=== PATIENT | female | born 1955 | race Caucasian/White ===

== ENCOUNTER 2023-12-19 04:16 | Inpatient (IN) | payer MEDICARE ==
[2023-12-19] MEDS ORDERED: fentaNYL 50 mcg/mL 1 mL Vial ONE ×3 (04:20→04:28)
[2023-12-19] MEDS ORDERED: Fentanyl CADD 100 ML IV SCH (04:30)
[2023-12-19 04:35] LABS: Analyzer IN Cardio ER; Calcium, Ionized (venous) 0.99 mmol/L (1.16-1.32); Chloride (VBG) 86 mmol/L (98-106); Hematocrit-VBG 37 % (36.0-47.0); Hemoglobin (Hb) 12.6 g/dL (11.7-16.1); Potassium (VBG) 2.96 mmol/L (3.70-5.30); Sodium 139 mmol/L (133-146); pH (venous) 7.421 (7.32-7.43)
[2023-12-19] MEDS ORDERED: NOREPINEPHRINE 8 MG/250 ML-D5W 250 ML ONE (04:37)
[2023-12-19] MEDS ORDERED: Cefepime 2 GM VIAL ONE (04:39)
[2023-12-19] MEDS ORDERED: Magnesium 2 GM/50 ML BAG (IN WATER) ONE (04:39)
[2023-12-19] MEDS ORDERED: Ketamine In 0.9 % NaCl 50 MG/5 ML SYRINGE ONE (04:48)
[2023-12-19 05:09] LABS: #Basophils 0.03 10x3/uL (0.0-0.2); %Basophils 0.2 % (0.0-1.0); %Eosinophils 1.3 % (0.0-10.0); %Lymphocytes 14.4 % (21.0-51.0); %Monocytes 3.9 % (0.0-10.0); %Neutrophils 79.8 % (42.0-75.0); Hematocrit 39.6 % (36.0-47.0); Mean Corpuscular HGB CONC 30.3 g/dL (32.0-36.0); Mean Corpuscular Hemoglobin 29.9 pg (27.0-31.0); Mean Corpuscular Volume 98.8 fL (78.0-98.0); Mean Platelet Volume 9.4 fL (7.4-10.4); Platelet Count 227 10x3/uL (130-400); RBC Distribution Width 13.9 % (11.5-14.5); Red Blood Cell (RBC) Count 4.01 mill/uL (4.20-5.40)
[2023-12-19 05:14] LABS: Actual Bicarbonate (HCO3v) 49.8 mEq/L (22-28)
[2023-12-19] MEDS ORDERED: Lorazepam 2 MG/ML VIAL ONE (05:28)
[2023-12-19 05:31] LABS: ALT (SGPT) 21 U/L (8-55); AST (SGOT) 15 U/L (5-34); Albumin 2.8 g/dL (3.4-4.8); Alkaline Phosphatase 55 U/L (40-110); Anion Gap 14 mmol/L (10-20); BUN (Urea Nitrogen) 12 mg/dL (9.8-20.1); Bilirubin, Total 1.7 mg/dL (0.2-1.2); Calc. Creatinine Clearance 0 mL/min (70-130); Calcium 8.6 mg/dL (7.8-10.44); Carbon Dioxide 49 mmol/L (23-31); Chloride 84 mmol/L (98-107); Estimated GFR 92; Globulin 3.2 g/dL (2.4-3.5); Glucose 165 mg/dL (80-115); Potassium 3.1 mmol/L (3.5-5.1); Sodium 144 mmol/L (136-145)
[2023-12-19] MEDS ORDERED: Sodium Chloride 0.9% 100 ML ONE (05:59)
[2023-12-19] MEDS ORDERED: Dexamethasone 10 MG/ML VIAL ONE (05:59)
[2023-12-19] MEDS ORDERED: Ondansetron PF 4 MG/2 ML Vial IVP PRN (06:04)
[2023-12-19] MEDS ORDERED: Ventilator Sedation Protocol 1 EACH FS SCH (07:15)
[2023-12-19] MEDS ORDERED: Fentanyl BOLUS 250 ML IVPB PRN (07:30)
[2023-12-19] MEDS ORDERED: Propofol BOLUS 1,000 MG/100 ML VIAL IV PRN (07:30)
[2023-12-19] MEDS: Ipratropium/Albuterol 3 ML NEB ONE (07:30)
[2023-12-19] MEDS ORDERED: DISCONTINUE PREVIOUS NARCOTIC PAIN MEDICATIONS AND BENZODIAZEPINES FS SCH (07:30)
[2023-12-19] MEDS ORDERED: Morphine 2 MG/ML VIAL SLOW IVP PRN (07:30)
[2023-12-19] MEDS ORDERED: NOREPINEPHRINE 8 MG/250 ML-D5W 250 ML IVPB SCH ×2 (07:45→08:15)
[2023-12-19] MEDS ORDERED: Sodium Chloride 0.9% 1,000 ML IV SCH (07:45)
[2023-12-19 07:56] LABS: Actual Bicarbonate (HCO3a) 45.5 mEq/L (22-28); Base Excess (BEa) 18.1 mEq/L (-2.0 to +3.0); Carboxyhemoglobin (COHb) 1.7 gm% (0.0-3.0); Hematocrit-ABG 36 % (36.0-47.0); Hemoglobin (Hb) 12.2 g/dL (12.0-16.0); Potassium - ABG Lab 3.28 mmol/L (3.70-5.30); pH, Arterial 7.445 (7.35-7.45)
[2023-12-19 07:58] LABS: ALV-art Gradient 111.125 mmHg (0-20); Puncture Site Right Brachial art
[2023-12-19] MEDS: Albumin 25% 25 GM (100 mL) BOT IVPB SCH (08:28)
[2023-12-19] MEDS: Potassium Chloride 20 MEQ TAB PO SCH (08:28)
[2023-12-19 08:55] VITALS: BMI 27.6
[2023-12-19] MEDS: Famotidine/PF 20 mg/2ml Vial SLOW IVP SCH (09:13)
[2023-12-19] MEDS: Enoxaparin 40 MG (0.4 mL) SYRINGE SC SCH (09:13)
[2023-12-19] MEDS: Ipratropium/Albuterol 3 ML NEB NEB SCH (10:59)
[2023-12-19] MEDS: Vancomycin (BATCH) 2 GM in Premix 1 BAG IVPB SCH (12:12)
[2023-12-19] MEDS: methylPREDNISolone Sod Succ 40 MG VIAL IVP SCH (13:13)
[2023-12-19] MEDS: Magnesium 2 GM/50 ML(in water) 2 GM in Premix 1 BAG IVPB SCH (13:13)
[2023-12-19] MEDS: Fentanyl CADD 100 ML IV SCH (14:13)
[2023-12-19] MEDS: Lorazepam 2 MG/ML VIAL SLOW IVP PRN (14:28)
[2023-12-19] MEDS: Cefepime 1 GM in Sodium Chloride 0.9% 100 ML IVPB SCH (17:23)
[2023-12-19 22:16] LABS: Anion Gap 13 mmol/L (10-20); BUN (Urea Nitrogen) 12 mg/dL (9.8-20.1); Calc. Creatinine Clearance 100 mL/min (70-130); Calcium 8.7 mg/dL (7.8-10.44); Carbon Dioxide 43 mmol/L (23-31); Chloride 88 mmol/L (98-107); Estimated GFR 96; Glucose 147 mg/dL (80-115); Potassium 3.8 mmol/L (3.5-5.1); Sodium 140 mmol/L (136-145)
[2023-12-20 04:33] LABS: #Basophils Less than 0.03 10x3/uL (0.0-0.2); #Eosinophils Less than 0.03 10x3/uL (0.0-0.7); %Lymphocytes 7.9 % (21.0-51.0); %Monocytes 3.1 % (0.0-10.0); %Neutrophils 88.7 % (42.0-75.0); Hematocrit 34.6 % (36.0-47.0); Hemoglobin 10.5 g/dL (12.0-16.0); Mean Corpuscular HGB CONC 30.3 g/dL (32.0-36.0); Mean Corpuscular Hemoglobin 30.6 pg (27.0-31.0); Mean Corpuscular Volume 100.9 fL (78.0-98.0); Mean Platelet Volume 9.3 fL (7.4-10.4); Platelet Count 216 10x3/uL (130-400); RBC Distribution Width 13.7 % (11.5-14.5); Red Blood Cell (RBC) Count 3.43 mill/uL (4.20-5.40)
[2023-12-20 05:24] LABS: ALT (SGPT) 61 U/L (8-55); AST (SGOT) 34 U/L (5-34); Albumin 3.1 g/dL (3.4-4.8); Alkaline Phosphatase 51 U/L (40-110); Anion Gap 10 mmol/L (10-20); BUN (Urea Nitrogen) 11 mg/dL (9.8-20.1); Bilirubin, Total 0.4 mg/dL (0.2-1.2); Calc. Creatinine Clearance 100 mL/min (70-130); Calcium 9.1 mg/dL (7.8-10.44); Carbon Dioxide 45 mmol/L (23-31); Chloride 88 mmol/L (98-107); Estimated GFR 96; Globulin 2.7 g/dL (2.4-3.5); Glucose 147 mg/dL (80-115); Magnesium 2.3 mg/dL (1.6-2.6); Potassium 3.8 mmol/L (3.5-5.1); Protein, Total 5.8 g/dL (5.8-8.1); Sodium 139 mmol/L (136-145)
[2023-12-20] MEDS: Dexmedetomidine In 0.9 % NaCl 100 ML IV SCH (11:17)
[2023-12-20] MEDS: Dextrose 5%-Lactated Ringers 1,000 ML IV SCH (11:18)
[2023-12-20] MEDS: Propofol 1,000 MG/100 ML VIAL IV PRN (16:30)
[2023-12-20] MEDS: Cefepime 2 GM in Sodium Chloride 0.9% 100 ML IVPB SCH (17:21)
[2023-12-21 03:46] LABS: #Basophils Less than 0.03 10x3/uL (0.0-0.2); #Eosinophils Less than 0.03 10x3/uL (0.0-0.7); %Lymphocytes 7.6 % (21.0-51.0); %Monocytes 4.4 % (0.0-10.0); %Neutrophils 87.7 % (42.0-75.0); Hematocrit 31.7 % (36.0-47.0); Mean Corpuscular HGB CONC 31.5 g/dL (32.0-36.0); Mean Corpuscular Hemoglobin 30.8 pg (27.0-31.0); Mean Corpuscular Volume 97.5 fL (78.0-98.0); Mean Platelet Volume 9.3 fL (7.4-10.4); Platelet Count 213 10x3/uL (130-400); RBC Distribution Width 13.7 % (11.5-14.5); Red Blood Cell (RBC) Count 3.25 mill/uL (4.20-5.40)
[2023-12-21 03:59] LABS: ALT (SGPT) 41 U/L (8-55); AST (SGOT) 14 U/L (5-34); Albumin 2.7 g/dL (3.4-4.8); Alkaline Phosphatase 43 U/L (40-110); Anion Gap 8 mmol/L (10-20); BUN (Urea Nitrogen) 12 mg/dL (9.8-20.1); Bilirubin, Total 0.3 mg/dL (0.2-1.2); Calc. Creatinine Clearance 105 mL/min (70-130); Calcium 9.1 mg/dL (7.8-10.44); Carbon Dioxide 43 mmol/L (23-31); Chloride 94 mmol/L (98-107); Estimated GFR 97; Globulin 2.6 g/dL (2.4-3.5); Glucose 199 mg/dL (80-115); Potassium 3.8 mmol/L (3.5-5.1); Protein, Total 5.3 g/dL (5.8-8.1); Sodium 141 mmol/L (136-145)
[2023-12-21 10:38] LABS: CO2 Tension 67.7 mmHg (35.0-45.0)
[2023-12-21 10:39] LABS: O2 Tension (PaO2), arterial 53.8 mmHg (> 80.0)
[2023-12-21] MEDS: Famotidine 20 MG TAB PO SCH (21:23)
[2023-12-22] MEDS ORDERED: dilTIAZem 25 MG/5 ML VIAL SLOW IVP SCH (01:45)
[2023-12-22 03:36] LABS: #Basophils Less than 0.03 10x3/uL (0.0-0.2); #Eosinophils Less than 0.03 10x3/uL (0.0-0.7); %Lymphocytes 10.5 % (21.0-51.0); %Monocytes 3.9 % (0.0-10.0); %Neutrophils 85.1 % (42.0-75.0); Hematocrit 36.6 % (36.0-47.0); Hemoglobin 11.2 g/dL (12.0-16.0); Mean Corpuscular HGB CONC 30.6 g/dL (32.0-36.0); Mean Corpuscular Hemoglobin 29.9 pg (27.0-31.0); Mean Corpuscular Volume 97.6 fL (78.0-98.0); Mean Platelet Volume 9.3 fL (7.4-10.4); Platelet Count 235 10x3/uL (130-400); RBC Distribution Width 13.8 % (11.5-14.5); Red Blood Cell (RBC) Count 3.75 mill/uL (4.20-5.40)
[2023-12-22 03:58] LABS: ALT (SGPT) 35 U/L (8-55); AST (SGOT) 13 U/L (5-34); Alkaline Phosphatase 47 U/L (40-110); Anion Gap 11 mmol/L (10-20); BUN (Urea Nitrogen) 11 mg/dL (9.8-20.1); Bilirubin, Total 0.5 mg/dL (0.2-1.2); Calc. Creatinine Clearance 102 mL/min (70-130); Calcium 9.4 mg/dL (7.8-10.44); Carbon Dioxide 41 mmol/L (23-31); Chloride 98 mmol/L (98-107); Estimated GFR 96; Globulin 2.9 g/dL (2.4-3.5); Glucose 161 mg/dL (80-115); Magnesium 1.7 mg/dL (1.6-2.6); Potassium 4.2 mmol/L (3.5-5.1); Protein, Total 5.9 g/dL (5.8-8.1); Sodium 146 mmol/L (136-145)
[2023-12-22] MEDS: Azithromycin 250 MG TAB PO SCH (13:12)
[2023-12-22] MEDS: ALPRAZolam 0.5 MG TAB PO SCH (16:14)
[2023-12-22] MEDS: Budesonide 0.5 MG/2 ML NEB INH SCH (18:36)
[2023-12-23] MEDS: Amlodipine 5 MG TAB PO SCH (08:11)
[2023-12-23 08:12] LABS: Anion Gap 9 mmol/L (10-20); BUN (Urea Nitrogen) 12 mg/dL (9.8-20.1); Calc. Creatinine Clearance 101 mL/min (70-130); Calcium 9.4 mg/dL (7.8-10.44); Carbon Dioxide 38 mmol/L (23-31); Chloride 101 mmol/L (98-107); Estimated GFR 96; Glucose 125 mg/dL (80-115); Potassium 4.1 mmol/L (3.5-5.1); Sodium 144 mmol/L (136-145)
[2023-12-23] MEDS: Montelukast Sodium 10 mg Tablet PO SCH (08:12)
[2023-12-23] MEDS: Azithromycin 250 MG TAB PO SCH (08:12)
[2023-12-23] MEDS: Arformoterol 15 MCG/2 ML NEB NEB SCH (18:32)
[2023-12-23] MEDS: methylPREDNISolone Sod Succ 40 MG VIAL IVP SCH (20:57)
[2023-12-24] MEDS: Ipratropium/Albuterol 3 ML NEB NEB SCH (14:27)
[2023-12-25] MEDS: Acetaminophen 325 MG TAB PO PRN (03:08)
[2023-12-25] MEDS: methylPREDNISolone Sod Succ 40 MG VIAL IVP SCH (09:56)
[2023-12-25 15:26] VITALS: BMI 26.9
[2023-12-26] MEDS: predniSONE 20 MG TAB PO SCH (09:00)
[2023-12-31] MEDS: ALPRAZolam 0.5 MG TAB PO PRN (16:11)
[2024-01-01 08:17] VITALS: BP 167/79; TEMP 98.1
== END 2024-01-01 12:05 | disposition home or self-care (01) | DRG 208 ==
LOC: ERS 04:16 → CCU 05:18 → IMCU/EMU 12-23 17:05 → SURG A 12-27 11:06
PROVIDERS: ADMIT Internal Medicine; ATTEND Internal Medicine
PROC: 4A033R1 Measurement of Arterial Saturation, Peripheral, Percutaneous Approach (ICD-10-PCS; principal; 2023-12-19)
PROC: 5A1945Z Respiratory Ventilation, 24-96 Consecutive Hours (ICD-10-PCS; 2023-12-19)
PROC: 3E033XZ Introduction of Vasopressor into Peripheral Vein, Percutaneous Approach (ICD-10-PCS; 2023-12-19)
PROC: 30233J1 Transfusion of Nonautologous Serum Albumin into Peripheral Vein, Percutaneous Approach (ICD-10-PCS; 2023-12-19)
PROC: 5A09457 Assistance with Respiratory Ventilation, 24-96 Consecutive Hours, Continuous Positive Airway Pressure (ICD-10-PCS; 2023-12-22)
DX: J96.21 Acute and chronic respiratory failure with hypoxia (principal); I50.33 Acute on chronic diastolic (congestive) heart failure; J44.1 Chronic obstructive pulmonary disease with (acute) exacerbation; E87.3 Alkalosis; J96.22 Acute and chronic respiratory failure with hypercapnia; E87.6 Hypokalemia; I11.0 Hypertensive heart disease with heart failure; E78.5 Hyperlipidemia, unspecified; E83.42 Hypomagnesemia; F41.1 Generalized anxiety disorder; I48.91 Unspecified atrial fibrillation; G47.33 Obstructive sleep apnea (adult) (pediatric); Z79.899 Other long term (current) drug therapy
CPT/HCPCS: 31500; 36415; 36556; 36600; 71045; 71275; 80048; 80053; 82805; 83605; 83735; 83880; 85025; 87040; 87428; 93005; 93010; 93306; 94002; 94003; 94640; 94660; 96365; 96366; 96368; 96375; 96376; J0692; J1100; J1650; J2060; J2704; J2919; J3010; J3370; J3475; J3490; J7512; J7620; J7626; P9047

== ENCOUNTER 2024-03-11 10:25 | Inpatient (IN) | payer MEDICAID, MEDICARE ==
[2024-03-11] MEDS ORDERED: Budesonide 0.5 MG/2 ML NEB ONE (10:34)
[2024-03-11] MEDS ORDERED: methylPREDNISolone Sod Succ/PF 125 MG/2 ML VIAL ONE (11:56)
[2024-03-11 11:59] LABS: #Basophils 0.03 10x3/uL (0.0-0.2); %Basophils 0.3 % (0.0-1.0); %Eosinophils 3.2 % (0.0-10.0); %Monocytes 5.5 % (0.0-10.0); %Neutrophils 78.6 % (42.0-75.0); Hematocrit 37.9 % (36.0-47.0); Hemoglobin 11.9 g/dL (12.0-16.0); Mean Corpuscular HGB CONC 31.4 g/dL (32.0-36.0); Mean Corpuscular Hemoglobin 29.7 pg (27.0-31.0); Mean Corpuscular Volume 94.5 fL (78.0-98.0); Mean Platelet Volume 8.5 fL (7.4-10.4); Platelet Count 212 10x3/uL (130-400); RBC Distribution Width 13.1 % (11.5-14.5); Red Blood Cell (RBC) Count 4.01 mill/uL (4.20-5.40)
[2024-03-11 12:20] LABS: ALT (SGPT) 19 U/L (8-55); AST (SGOT) 14 U/L (5-34); Albumin 3.3 g/dL (3.4-4.8); Alkaline Phosphatase 56 U/L (40-110); Anion Gap 9 mmol/L (10-20); BUN (Urea Nitrogen) 10 mg/dL (9.8-20.1); Bilirubin, Total 0.4 mg/dL (0.2-1.2); Calc. Creatinine Clearance 0 mL/min (70-130); Calcium 9.6 mg/dL (7.8-10.44); Carbon Dioxide 48 mmol/L (23-31); Chloride 92 mmol/L (98-107); Estimated GFR 99; Globulin 3.2 g/dL (2.4-3.5); Glucose 133 mg/dL (80-115); Protein, Total 6.5 g/dL (5.8-8.1); Sodium 145 mmol/L (136-145)
[2024-03-11 12:23] LABS: Troponin I 0.013 ng/mL (< 0.028)
[2024-03-11 12:44] LABS: Analyzer IN Cardio ER; Base Excess 19.3 mEq/L (-2.0 to +3.0); Calcium, Ionized (venous) 1.17 mmol/L (1.16-1.32); Chloride (VBG) 93 mmol/L (98-106); Hematocrit-VBG 35 % (36.0-47.0); Hemoglobin (Hb) 11.8 g/dL (11.7-16.1); Potassium (VBG) 4.13 mmol/L (3.70-5.30); Sodium 141 mmol/L (133-146); pH (venous) 7.305 (7.32-7.43)
[2024-03-11 12:46] LABS: Actual Bicarbonate (HCO3v) 50.3 mEq/L (22-28)
[2024-03-11] MEDS ORDERED: Ketorolac Tromethamine 30 MG (1 mL) VIAL ONE (13:33)
[2024-03-11] MEDS ORDERED: Bisacodyl 5 MG TAB PO PRN (14:45)
[2024-03-11] MEDS ORDERED: Ondansetron PF 4 MG/2 ML Vial IVP PRN (14:45)
[2024-03-11] MEDS: Azithromycin 500 MG in Sodium Chloride 0.9% 250 ML 250 ML IVPB SCH (15:50)
[2024-03-11] MEDS: cefTRIAXone\\ROCEPHIN 1 GM in Sodium Chloride 0.9% 100 ML IVPB SCH (15:51)
[2024-03-11] MEDS: Zinc Oxide 20% Oint 30 GM TUBE TOP SCH (15:52)
[2024-03-11] MEDS: ALPRAZolam 0.5 MG TAB PO SCH (17:36)
[2024-03-11] MEDS: methylPREDNISolone Sod Succ 40 MG VIAL IVP SCH (17:36)
[2024-03-11] MEDS: Ipratropium/Albuterol 3 ML NEB NEB SCH (18:22)
[2024-03-12 01:03] VITALS: BMI 28.3
[2024-03-12] MEDS: Acetaminophen 325 MG TAB PO PRN (03:12)
[2024-03-12 05:54] LABS: #Basophils Less than 0.03 10x3/uL (0.0-0.2); #Eosinophils Less than 0.03 10x3/uL (0.0-0.7); %Monocytes 2.1 % (0.0-10.0); %Neutrophils 85.4 % (42.0-75.0); Mean Corpuscular HGB CONC 31.4 g/dL (32.0-36.0); Mean Corpuscular Hemoglobin 29.3 pg (27.0-31.0); Mean Corpuscular Volume 93.3 fL (78.0-98.0); Mean Platelet Volume 9.4 fL (7.4-10.4); Platelet Count 216 10x3/uL (130-400); RBC Distribution Width 12.8 % (11.5-14.5); Red Blood Cell (RBC) Count 3.75 mill/uL (4.20-5.40)
[2024-03-12 06:15] LABS: Anion Gap 11 mmol/L (10-20); BUN (Urea Nitrogen) 24 mg/dL (9.8-20.1); Calc. Creatinine Clearance 92 mL/min (70-130); Calcium 9.2 mg/dL (7.8-10.44); Carbon Dioxide 43 mmol/L (23-31); Chloride 95 mmol/L (98-107); Estimated GFR 95; Glucose 184 mg/dL (80-115); Potassium 4.5 mmol/L (3.5-5.1); Sodium 144 mmol/L (136-145)
[2024-03-12] MEDS: Mometasone 200 MCG/Formoterol 5 MCG 120 PUFF INHALER INH SCH (06:44)
[2024-03-12] MEDS ORDERED: Non-Formulary Item 1 EACH (Tiotropium Bromide 4 GM Inhaler) INH SCH (09:00)
[2024-03-12] MEDS: Montelukast Sodium 10 mg Tablet PO SCH (09:25)
[2024-03-12] MEDS: Enoxaparin 40 MG (0.4 mL) SYRINGE SC SCH (09:26)
[2024-03-12] MEDS: Famotidine/PF 20 mg/2ml Vial SLOW IVP SCH (09:26)
[2024-03-12] MEDS ORDERED: traMADol HCl 50 MG TAB PO PRN (17:45)
[2024-03-12] MEDS: Ipratropium/Albuterol 3 ML NEB NEB PRN (22:14)
[2024-03-13] MEDS: FLU (Fluad Triv) TS24-25 (65UP)/MF59C/PF 45 MCG/0.5 ML Syringe IM ONE (08:12)
[2024-03-14 08:23] VITALS: BP 153/76; TEMP 98.1
[2024-03-14] MEDS: Amlodipine 5 MG TAB PO SCH (09:06)
[2024-03-14] MEDS: Pantoprazole DR 40 MG TAB PO SCH (09:06)
[2024-03-14 13:44] LABS: Base Excess 12.2 mEq/L (-2.0 to +3.0); Calcium, Ionized (venous) 1.11 mmol/L (1.16-1.32); Chloride (VBG) 93 mmol/L (98-106); Hematocrit-VBG 39 % (36.0-47.0); Hemoglobin (Hb) 13.3 g/dL (11.7-16.1); Potassium (VBG) 4.47 mmol/L (3.70-5.30); Sodium 142 mmol/L (133-146)
[2024-03-14 13:47] LABS: Actual Bicarbonate (HCO3v) 39.8 mEq/L (22-28)
== END 2024-03-14 15:50 | disposition home or self-care (01) | DRG 189 ==
LOC: ERS 10:25 → IMCU/EMU 14:37 → T4-A 03-13 13:54
PROVIDERS: ADMIT Internal Medicine; ATTEND Family Medicine
PROC: 5A09357 Assistance with Respiratory Ventilation, Less than 24 Consecutive Hours, Continuous Positive Airway Pressure (ICD-10-PCS; principal; 2024-03-14)
DX: J96.21 Acute and chronic respiratory failure with hypoxia (principal); J44.1 Chronic obstructive pulmonary disease with (acute) exacerbation; I50.32 Chronic diastolic (congestive) heart failure; J96.22 Acute and chronic respiratory failure with hypercapnia; I11.0 Hypertensive heart disease with heart failure; Z90.49 Acquired absence of other specified parts of digestive tract; Z98.51 Tubal ligation status; Z87.891 Personal history of nicotine dependence; Z79.899 Other long term (current) drug therapy; R33.8 Other retention of urine
CPT/HCPCS: 36415; 36416; 71045; 80048; 80053; 82805; 83880; 84484; 85025; 93005; 94640; 96374; 96375; J0456; J0696; J1650; J1885; J2919; J3490; J7050; J7620; J7626

== ENCOUNTER 2024-04-23 17:58 | Inpatient (IN) | payer MEDICARE, OTHER ==
[2024-04-23] MEDS ORDERED: Magnesium 2 GM/50 ML BAG (IN WATER) ONE (18:56)
[2024-04-23] MEDS ORDERED: Ipratropium/Albuterol 3 ML NEB ONE ×2 (19:05→20:45)
[2024-04-23 19:21] LABS: Bilirubin Negative (Negative); Blood, Urine 1+ (Negative); CAUTI Indications for Culture Alt mental st,lethar; Clarity Turbid (Clear); Glucose, Urine (Dipstick) 100 mg/dL (Negative); Ketone, Urine Negative (Negative); Leukocyte 500 Leu/uL (Negative); Nitrite Negative (Negative); Protein, Urine (Dipstick) 100 mg/dL (Neg-Trace); Specific Gravity, Urine 1.024 (1.002-1.036); Urobilinogen Normal mg/dL (Less than 2); WBC/HPF Greater than 50 HPF (0-3); pH, Urine 5.5 (5.0-9.0)
[2024-04-23 19:25] LABS: Bacteria/HPF 1+ HPF (None Seen)
[2024-04-23 19:28] LABS: Urine Culture Reflex Yes Yes
[2024-04-23 20:06] LABS: #Basophils Less than 0.03 10x3/uL (0.0-0.2); #Eosinophils Less than 0.03 10x3/uL (0.0-0.7); %Basophils 0.1 % (0.0-1.0); %Eosinophils 0.1 % (0.0-10.0); %Lymphocytes 15.8 % (21.0-51.0); %Monocytes 6.8 % (0.0-10.0); %Neutrophils 76.8 % (42.0-75.0); Hematocrit 40.1 % (36.0-47.0); Hemoglobin 12.5 g/dL (12.0-16.0); Mean Corpuscular HGB CONC 31.2 g/dL (32.0-36.0); Mean Corpuscular Hemoglobin 29.8 pg (27.0-31.0); Mean Corpuscular Volume 95.7 fL (78.0-98.0); Mean Platelet Volume 9.1 fL (7.4-10.4); Platelet Count 186 10x3/uL (130-400); RBC Distribution Width 12.7 % (11.5-14.5); Red Blood Cell (RBC) Count 4.19 mill/uL (4.20-5.40)
[2024-04-23 20:13] LABS: Base Excess 13.1 mEq/L (-2.0 to +3.0); Calcium, Ionized (venous) 1.11 mmol/L (1.16-1.32); Chloride (VBG) 88 mmol/L (98-106); Hematocrit-VBG 41 % (36.0-47.0); Hemoglobin (Hb) 13.9 g/dL (11.7-16.1); Potassium (VBG) 4.08 mmol/L (3.70-5.30); Sodium 143 mmol/L (133-146); pH (venous) 7.419 (7.32-7.43)
[2024-04-23] MEDS ORDERED: Albuterol 2.5 MG (3 mL) NEB ONE (20:45)
[2024-04-23 20:52] LABS: ALT (SGPT) 33 U/L (Less than 34); AST (SGOT) 21 U/L (11-34); Albumin 3.3 g/dL (3.1-4.5); Alkaline Phosphatase 46 U/L (40-110); Anion Gap 17 mmol/L (10-20); BUN (Urea Nitrogen) 16 mg/dL (9.8-20.1); Bilirubin, Total 0.5 mg/dL (0.3-1.2); Calc. Creatinine Clearance 0 mL/min (70-130); Calcium 9.5 mg/dL (7.8-10.44); Carbon Dioxide 42 mmol/L (23-31); Chloride 91 mmol/L (98-107); Estimated GFR 100; Globulin 2.8 g/dL (2.4-3.5); Glucose 86 mg/dL (80-115); Magnesium 1.5 mg/dL (1.6-2.6); Potassium 4.2 mmol/L (3.5-5.1); Protein, Total 6.1 g/dL (5.8-8.1); Sodium 146 mmol/L (136-145)
[2024-04-23 20:54] LABS: Troponin I 0.015 ng/mL (< 0.028)
[2024-04-23] MEDS ORDERED: Sodium Chloride 0.9% 100 ML ONE (21:29)
[2024-04-23] MEDS ORDERED: Dexamethasone 10 MG/ML VIAL ONE (21:29)
[2024-04-23] MEDS ORDERED: CEFAZOLIN 2 GM VIAL ONE (21:29)
[2024-04-23] MEDS ORDERED: Azithromycin 500 MG VIAL ONE (21:48)
[2024-04-23] MEDS ORDERED: Ipratropium/Albuterol 3 ML NEB NEB PRN (22:45)
[2024-04-23] MEDS ORDERED: Ondansetron ODT 4 MG TAB PO PRN (22:49)
[2024-04-24 00:05] VITALS: BMI 25.6
[2024-04-24] MEDS: Albuterol 2.5 MG (3 mL) NEB ONE (00:28)
[2024-04-24] MEDS: guaiFENesin ER 600 MG TAB PO SCH ×2 (00:41→09:20)
[2024-04-24] MEDS: Mometasone 200 MCG/Formoterol 5 MCG 120 PUFF INHALER INH SCH ×2 (00:41→07:44)
[2024-04-24] MEDS: Acetaminophen 325 MG TAB PO PRN (01:03)
[2024-04-24] MEDS: ALPRAZolam 0.5 MG TAB PO SCH (01:03)
[2024-04-24] MEDS: Ipratropium/Albuterol 3 ML NEB NEB SCH (01:35)
[2024-04-24 05:44] LABS: #Basophils Less than 0.03 10x3/uL (0.0-0.2); #Eosinophils Less than 0.03 10x3/uL (0.0-0.7); %Lymphocytes 7.2 % (21.0-51.0); %Monocytes 1.6 % (0.0-10.0); %Neutrophils 90.7 % (42.0-75.0); Hematocrit 35.6 % (36.0-47.0); Hemoglobin 11.1 g/dL (12.0-16.0); Mean Corpuscular HGB CONC 31.2 g/dL (32.0-36.0); Mean Corpuscular Hemoglobin 29.9 pg (27.0-31.0); Mean Platelet Volume 9.4 fL (7.4-10.4); Platelet Count 171 10x3/uL (130-400); RBC Distribution Width 12.8 % (11.5-14.5); Red Blood Cell (RBC) Count 3.71 mill/uL (4.20-5.40)
[2024-04-24 06:10] LABS: Anion Gap 13 mmol/L (10-20); BUN (Urea Nitrogen) 17 mg/dL (9.8-20.1); Calc. Creatinine Clearance 94 mL/min (70-130); Calcium 8.8 mg/dL (7.8-10.44); Carbon Dioxide 42 mmol/L (23-31); Chloride 93 mmol/L (98-107); Estimated GFR 98; Glucose 226 mg/dL (80-115); Magnesium 1.8 mg/dL (1.6-2.6); Potassium 4.1 mmol/L (3.5-5.1); Sodium 144 mmol/L (136-145)
[2024-04-24] MEDS ORDERED: ALPRAZolam 0.5 MG TAB PO SCH (09:00)
[2024-04-24] MEDS: Pantoprazole 40 MG DR.TAB PO SCH (09:20)
[2024-04-24] MEDS: Montelukast Sodium 10 mg Tablet PO SCH (09:20)
[2024-04-24] MEDS: methylPREDNISolone Sod Succ 40 MG VIAL IVP SCH (09:21)
[2024-04-24] MEDS: ALPRAZolam 0.25 MG TAB PO SCH (09:21)
[2024-04-24] MEDS: Amlodipine 5 MG TAB PO SCH (09:21)
[2024-04-24] MEDS: Enoxaparin 40 MG (0.4 mL) SYRINGE SC SCH (09:22)
[2024-04-24] MEDS: cefTRIAXone\\ROCEPHIN 1 GM in Sodium Chloride 0.9% 100 ML IVPB SCH (19:43)
[2024-04-24] MEDS: Azithromycin 500 MG in Sodium Chloride 0.9% 250 ML 250 ML IVPB SCH (19:44)
[2024-04-24] MEDS ORDERED: Non-Formulary Item 1 EACH (Budesonide-Formoterol [Symbicort 160-4.5] 160 MG/4.5 MG Aer) INH SCH (21:00)
[2024-04-24] MEDS: methylPREDNISolone Sod Succ/PF 125 MG/2 ML VIAL IVP SCH (21:07)
[2024-04-24] MEDS: Ondansetron PF 4 MG/2 ML Vial IVP PRN (21:51)
[2024-04-24] MEDS: Ipratropium Bromide 2.5 ml Neb NEB SCH (23:20)
[2024-04-25 03:58] LABS: #Basophils Less than 0.03 10x3/uL (0.0-0.2); #Eosinophils Less than 0.03 10x3/uL (0.0-0.7); %Basophils 0.1 % (0.0-1.0); %Lymphocytes 9.2 % (21.0-51.0); %Monocytes 2.2 % (0.0-10.0); %Neutrophils 87.6 % (42.0-75.0); Hematocrit 34.4 % (36.0-47.0); Hemoglobin 10.6 g/dL (12.0-16.0); Mean Corpuscular HGB CONC 30.8 g/dL (32.0-36.0); Mean Corpuscular Hemoglobin 29.9 pg (27.0-31.0); Mean Corpuscular Volume 97.2 fL (78.0-98.0); Mean Platelet Volume 9.5 fL (7.4-10.4); Platelet Count 172 10x3/uL (130-400); RBC Distribution Width 12.7 % (11.5-14.5); Red Blood Cell (RBC) Count 3.54 mill/uL (4.20-5.40)
[2024-04-25 04:29] LABS: Anion Gap 13 mmol/L (10-20); BUN (Urea Nitrogen) 15 mg/dL (9.8-20.1); Calc. Creatinine Clearance 87 mL/min (70-130); Calcium 8.8 mg/dL (7.8-10.44); Carbon Dioxide 42 mmol/L (23-31); Chloride 96 mmol/L (98-107); Estimated GFR 96; Glucose 171 mg/dL (80-115); Magnesium 1.7 mg/dL (1.6-2.6); Potassium 4.9 mmol/L (3.5-5.1); Sodium 146 mmol/L (136-145)
[2024-04-25] MEDS ORDERED: Electrolyte Replacement Protocol 1 EACH FS PRN (05:03)
[2024-04-25 07:41] VITALS: TEMP 98.7
[2024-04-25] MEDS: Magnesium 2 GM/50 ML(in water) 2 GM in Premix 1 BAG IVPB SCH (09:01)
[2024-04-25] MEDS: FLU (Fluad Triv) TS24-25 (65UP)/MF59C/PF 45 MCG/0.5 ML Syringe IM ONE (09:14)
[2024-04-25 11:41] LABS: Actual Bicarbonate (HCO3v) 40.6 mEq/L (22-28)
[2024-04-25 12:03] VITALS: BP 118/70
[2024-04-25 13:18] VITALS: BMI 25.6
== END 2024-04-25 15:05 | disposition home or self-care (01) | DRG 189 ==
LOC: ERS 17:58 → T4-B 21:54 → OBSVTOIN 04-24 11:45
PROVIDERS: ADMIT Student in an Organized Health Care Education/Training Program; ATTEND Family Medicine
DX: J96.21 Acute and chronic respiratory failure with hypoxia (principal); J44.1 Chronic obstructive pulmonary disease with (acute) exacerbation; N39.0 Urinary tract infection, site not specified; I10 Essential (primary) hypertension; E83.42 Hypomagnesemia; Z90.49 Acquired absence of other specified parts of digestive tract; J96.22 Acute and chronic respiratory failure with hypercapnia; Z79.899 Other long term (current) drug therapy; Z79.51 Long term (current) use of inhaled steroids
CPT/HCPCS: 36415; 71045; 80048; 80053; 81001; 82805; 83605; 83735; 83880; 84484; 85025; 87040; 87086; 93005; 94644; 96372; 96375; G0378; J0456; J0696; J1100; J1650; J2405; J2919; J3475; J7050; J7611; J7620

== ENCOUNTER 2024-10-05 12:00 | Inpatient (IN) | payer OTHER, MEDICAID ==
[~2024-10-05 12:00] MED LIST: Iopamidol-370 76% 500 ML MDV (1 ML CHARGE) ONE
[2024-10-05 12:29] LABS: Analyzer IN Cardio ER; Base Excess 14.5 mEq/L (-2.0 to +3.0); Calcium, Ionized (venous) 1.01 mmol/L (1.16-1.32); Chloride (VBG) 90 mmol/L (98-106); Hematocrit-VBG 37 % (36.0-47.0); Hemoglobin (Hb) 12.6 g/dL (11.7-16.1); Potassium (VBG) 3.38 mmol/L (3.70-5.30); Sodium 140 mmol/L (133-146)
[2024-10-05 12:31] LABS: Actual Bicarbonate (HCO3v) 41.6 mEq/L (22-28)
[2024-10-05 12:43] LABS: #Basophils Less than 0.03 10x3/uL (0.0-0.2); #Eosinophils 0.14 10x3/uL (0.0-0.7); #Monocytes 0.63 10x3/uL (0.11-0.59); #Neutrophils 6.03 10x3/uL (1.40-6.50); %Basophils 0.1 % (0.0-1.0); %Eosinophils 1.6 % (0.0-10.0); %Lymphocytes 22.6 % (21.0-51.0); %Monocytes 7.1 % (0.0-10.0); %Neutrophils 67.9 % (42.0-75.0); Hematocrit 37.7 % (36.0-47.0); Hemoglobin 11.0 g/dL (12.0-16.0); Mean Corpuscular Hemoglobin 28.4 pg (27.0-31.0); Mean Corpuscular Volume 97.4 fL (78.0-98.0); Platelet Count 279 10x3/uL (130-400); Red Blood Cell (RBC) Count 3.87 mill/uL (4.20-5.40); White Blood Cell (WBC) Count 8.88 10x3/uL (4.8-10.8)
[2024-10-05 12:58] LABS: ALT (SGPT) 13 U/L (Less than 34); AST (SGOT) 22 U/L (11-34); Albumin 2.9 g/dL (3.1-4.5); Alkaline Phosphatase 85 U/L (40-110); Anion Gap 15 mmol/L (10-20); BUN (Urea Nitrogen) 10 mg/dL (9.8-20.1); Bilirubin, Total 0.3 mg/dL (0.3-1.2); Calc. Creatinine Clearance 0 mL/min (70-130); Calcium 9.4 mg/dL (7.8-10.44); Carbon Dioxide 44 mmol/L (23-31); Chloride 87 mmol/L (98-107); Globulin 3.9 g/dL (2.4-3.5); Glucose 178 mg/dL (80-115); Potassium 3.4 mmol/L (3.5-5.1); Sodium 143 mmol/L (136-145)
[2024-10-05 13:02] LABS: Troponin I Less than 0.010 ng/mL (< 0.028)
[2024-10-05 15:41] LABS: Acetaminophen Less than 10 mcg/mL (Less than 10); Salicylate Less than 8.0 mg/dL (Less than 8.0)
[2024-10-05] MEDS ORDERED: Azithromycin 500 MG VIAL ONE (15:51)
[2024-10-05 18:15] LABS: Cocaine Metabolite Screen Negative (Negative); THC/Cannabinoid Screen Negative (Negative); Tricyclic Screen Negative (Negative)
[2024-10-05] MEDS ORDERED: Ondansetron PF 4 MG/2 ML Vial IVP PRN (18:25)
[2024-10-05] MEDS ORDERED: Guaifenesin DM 100-10/5 ML UDCUP PO PRN (18:25)
[2024-10-05] MEDS: Famotidine/PF 20 mg/2ml Vial SLOW IVP SCH (21:09)
[2024-10-05] MEDS: Vancomycin (BATCH) 2 GM in Premix 1 BAG IVPB SCH (21:30)
[2024-10-05] MEDS ORDERED: Albuterol 2.5 MG (3 mL) NEB NEB PRN (22:30)
[2024-10-06 03:34] LABS: Bacteria/HPF None Seen HPF (None Seen); Glucose, Urine (Dipstick) Normal (Negative); Leukocyte Negative Leu/uL (Negative); Protein, Urine (Dipstick) 10 mg/dL (Neg-Trace); RBC/HPF 0-3 HPF (0-3); Specific Gravity, Urine 1.040 (1.002-1.036)
[2024-10-06 04:23] LABS: #Basophils Less than 0.03 10x3/uL (0.0-0.2); #Eosinophils Less than 0.03 10x3/uL (0.0-0.7); #Monocytes 0.44 10x3/uL (0.11-0.59); #Neutrophils 4.57 10x3/uL (1.40-6.50); %Basophils 0.0 % (0.0-1.0); %Eosinophils 0.0 % (0.0-10.0); %Lymphocytes 18.6 % (21.0-51.0); %Monocytes 7.1 % (0.0-10.0); %Neutrophils 74.1 % (42.0-75.0); Hematocrit 33.6 % (36.0-47.0); Hemoglobin 9.8 g/dL (12.0-16.0); Mean Corpuscular Hemoglobin 27.8 pg (27.0-31.0); Mean Corpuscular Volume 95.2 fL (78.0-98.0); Platelet Count 240 10x3/uL (130-400); Red Blood Cell (RBC) Count 3.53 mill/uL (4.20-5.40); White Blood Cell (WBC) Count 6.17 10x3/uL (4.8-10.8)
[2024-10-06 04:32] LABS: Vancomycin, Random 25.0 ug/mL (See Comment)
[2024-10-06 04:34] LABS: Anion Gap 13 mmol/L (10-20); BUN (Urea Nitrogen) 13 mg/dL (9.8-20.1); Calc. Creatinine Clearance 112 mL/min (70-130); Calcium 9.1 mg/dL (7.8-10.44); Carbon Dioxide 43 mmol/L (23-31); Chloride 92 mmol/L (98-107); Glucose 128 mg/dL (80-115); Potassium 3.8 mmol/L (3.5-5.1); Sodium 144 mmol/L (136-145)
[2024-10-06] MEDS: Acetaminophen 325 MG TAB PO SCH (05:10)
[2024-10-06] MEDS: Mometasone 200 MCG/Formoterol 5 MCG 120 PUFF INHALER INH SCH (07:30)
[2024-10-06] MEDS ORDERED: Non-Formulary Item 1 EACH (Tiotropium Bromide 4 GM Inhaler) INH SCH (09:00)
[2024-10-06] MEDS ORDERED: Vancomycin 1 GM in Premix 1 BAG IVPB SCH ×2 (09:00→22:00)
[2024-10-06] MEDS: Metoprolol Succinate XL 25 MG ER.TAB PO SCH (09:24)
[2024-10-06] MEDS: Enoxaparin 40 MG (0.4 mL) SYRINGE SC SCH (09:25)
[2024-10-06] MEDS: Furosemide 20 MG TAB PO SCH (09:26)
[2024-10-06] MEDS: predniSONE 20 MG TAB PO SCH (09:26)
[2024-10-06] MEDS: Vancomycin 1.25 GM / NS 250 ML VIAL-2-BAG IVPB SCH (09:27)
[2024-10-07 06:13] LABS: #Basophils Less than 0.03 10x3/uL (0.0-0.2); #Eosinophils 0.09 10x3/uL (0.0-0.7); #Monocytes 0.49 10x3/uL (0.11-0.59); #Neutrophils 4.59 10x3/uL (1.40-6.50); %Basophils 0.3 % (0.0-1.0); %Eosinophils 1.4 % (0.0-10.0); %Lymphocytes 21.2 % (21.0-51.0); %Monocytes 7.4 % (0.0-10.0); %Neutrophils 69.4 % (42.0-75.0); Hematocrit 32.6 % (36.0-47.0); Hemoglobin 9.6 g/dL (12.0-16.0); Mean Corpuscular Hemoglobin 28.7 pg (27.0-31.0); Mean Corpuscular Volume 97.3 fL (78.0-98.0); Platelet Count 222 10x3/uL (130-400); Red Blood Cell (RBC) Count 3.35 mill/uL (4.20-5.40); White Blood Cell (WBC) Count 6.61 10x3/uL (4.8-10.8)
[2024-10-07 06:27] LABS: Anion Gap 13 mmol/L (10-20); BUN (Urea Nitrogen) 19 mg/dL (9.8-20.1); Calc. Creatinine Clearance 93 mL/min (70-130); Calcium 8.7 mg/dL (7.8-10.44); Carbon Dioxide 44 mmol/L (23-31); Chloride 92 mmol/L (98-107); Glucose 86 mg/dL (80-115); Potassium 3.3 mmol/L (3.5-5.1); Sodium 146 mmol/L (136-145)
[2024-10-07] MEDS: Famotidine 20 MG TAB PO SCH (10:00)
[2024-10-07] MEDS ORDERED: Famotidine 20 MG TAB PO SCH (21:00)
[2024-10-08 03:33] LABS: #Basophils Less than 0.03 10x3/uL (0.0-0.2); #Eosinophils Less than 0.03 10x3/uL (0.0-0.7); #Monocytes 0.46 10x3/uL (0.11-0.59); #Neutrophils 5.96 10x3/uL (1.40-6.50); %Basophils 0.2 % (0.0-1.0); %Eosinophils 0.1 % (0.0-10.0); %Lymphocytes 19.9 % (21.0-51.0); %Monocytes 5.7 % (0.0-10.0); %Neutrophils 73.9 % (42.0-75.0); Hematocrit 32.3 % (36.0-47.0); Hemoglobin 9.5 g/dL (12.0-16.0); Mean Corpuscular Hemoglobin 28.8 pg (27.0-31.0); Mean Corpuscular Volume 97.9 fL (78.0-98.0); Platelet Count 262 10x3/uL (130-400); Red Blood Cell (RBC) Count 3.30 mill/uL (4.20-5.40); White Blood Cell (WBC) Count 8.08 10x3/uL (4.8-10.8)
[2024-10-08 03:58] LABS: Anion Gap 13 mmol/L (10-20); BUN (Urea Nitrogen) 23 mg/dL (9.8-20.1); Calc. Creatinine Clearance 80 mL/min (70-130); Calcium 8.6 mg/dL (7.8-10.44); Carbon Dioxide 37 mmol/L (23-31); Chloride 95 mmol/L (98-107); Glucose 106 mg/dL (80-115); Potassium 4.1 mmol/L (3.5-5.1); Sodium 141 mmol/L (136-145)
[2024-10-09 03:12] LABS: #Basophils Less than 0.03 10x3/uL (0.0-0.2); #Eosinophils Less than 0.03 10x3/uL (0.0-0.7); #Monocytes 0.32 10x3/uL (0.11-0.59); #Neutrophils 4.88 10x3/uL (1.40-6.50); %Basophils 0.1 % (0.0-1.0); %Eosinophils 0.0 % (0.0-10.0); %Lymphocytes 21.8 % (21.0-51.0); %Monocytes 4.8 % (0.0-10.0); %Neutrophils 72.9 % (42.0-75.0); Hematocrit 31.2 % (36.0-47.0); Hemoglobin 9.1 g/dL (12.0-16.0); Mean Corpuscular Hemoglobin 28.0 pg (27.0-31.0); Mean Corpuscular Volume 96.0 fL (78.0-98.0); Platelet Count 260 10x3/uL (130-400); Red Blood Cell (RBC) Count 3.25 mill/uL (4.20-5.40); White Blood Cell (WBC) Count 6.70 10x3/uL (4.8-10.8)
[2024-10-09 04:13] LABS: Anion Gap 11 mmol/L (10-20); BUN (Urea Nitrogen) 18 mg/dL (9.8-20.1); Calc. Creatinine Clearance 99 mL/min (70-130); Calcium 8.8 mg/dL (7.8-10.44); Carbon Dioxide 35 mmol/L (23-31); Chloride 100 mmol/L (98-107); Glucose 133 mg/dL (80-115); Potassium 4.1 mmol/L (3.5-5.1); Sodium 142 mmol/L (136-145)
[2024-10-12 16:36] VITALS: BMI 26.4
[2024-10-15 06:49] VITALS: BMI 26.4
[2024-10-15] MEDS: Senokot S 8.6-50 MG TAB PO PRN (09:07)
[2024-10-16] MEDS: Simethicone Chewable 80 MG TAB PO PRN (13:29)
[2024-10-17 06:37] LABS: #Basophils Less than 0.03 10x3/uL (0.0-0.2); #Eosinophils 0.07 10x3/uL (0.0-0.7); #Monocytes 0.55 10x3/uL (0.11-0.59); #Neutrophils 6.63 10x3/uL (1.40-6.50); %Basophils 0.2 % (0.0-1.0); %Eosinophils 0.8 % (0.0-10.0); %Lymphocytes 19.5 % (21.0-51.0); %Monocytes 6.1 % (0.0-10.0); %Neutrophils 73.0 % (42.0-75.0); Hematocrit 35.2 % (36.0-47.0); Hemoglobin 10.3 g/dL (12.0-16.0); Mean Corpuscular Hemoglobin 27.9 pg (27.0-31.0); Mean Corpuscular Volume 95.4 fL (78.0-98.0); Platelet Count 338 10x3/uL (130-400); Red Blood Cell (RBC) Count 3.69 mill/uL (4.20-5.40); White Blood Cell (WBC) Count 9.08 10x3/uL (4.8-10.8)
[2024-10-17 06:50] LABS: Calc. Creatinine Clearance 117.0 mL/min (70-130)
[2024-10-22] MEDS: predniSONE 20 MG TAB PO SCH (08:11)
[2024-10-24 19:16] LABS: Actual Bicarbonate (HCO3a) 39.7 mEq/L (22-28); Base Excess (BEa) 10.4 mEq/L (-2.0 to +3.0); Calcium, Ionized (arterial) 1.25 mmol/L (1.12-1.30); Hematocrit-ABG 32 % (36.0-47.0); Hemoglobin (Hb) 11.0 g/dL (12.0-16.0); O2 Tension (PaO2), arterial 78.6 mmHg (> 80.0); Potassium - ABG Lab 4.26 mmol/L (3.70-5.30); pH, Arterial 7.287 (7.35-7.45)
[2024-10-24 19:17] LABS: CO2 Tension 85.1 mmHg (35.0-45.0); Puncture Site Right Radial artery
[2024-10-24 19:18] LABS: ALV-art Gradient 43.185 mmHg (0-20)
[2024-10-25 11:30] VITALS: BP 103/62; TEMP 97.6
== END 2024-10-25 17:03 | disposition home or self-care (01) | DRG 91 ==
LOC: ERS 12:00 → ERHOLD 17:51 → IMCU/EMU 20:15 → PCU 10-11 21:24 → SURG A 10-14 16:23
PROVIDERS: ADMIT Hospitalist; ATTEND Internal Medicine
PROC: 5A09457 Assistance with Respiratory Ventilation, 24-96 Consecutive Hours, Continuous Positive Airway Pressure (ICD-10-PCS; 2024-10-05)
PROC: 4A033R1 Measurement of Arterial Saturation, Peripheral, Percutaneous Approach (ICD-10-PCS; principal; 2024-10-24)
DX: G92.8 Other toxic encephalopathy (principal); J18.9 Pneumonia, unspecified organism; J96.21 Acute and chronic respiratory failure with hypoxia; J96.22 Acute and chronic respiratory failure with hypercapnia; I50.32 Chronic diastolic (congestive) heart failure; J44.0 Chronic obstructive pulmonary disease with (acute) lower respiratory infection; J44.1 Chronic obstructive pulmonary disease with (acute) exacerbation; E87.3 Alkalosis; E87.6 Hypokalemia; I11.0 Hypertensive heart disease with heart failure; F41.1 Generalized anxiety disorder; Z88.8 Allergy status to other drugs, medicaments and biological substances; E78.5 Hyperlipidemia, unspecified; Z90.49 Acquired absence of other specified parts of digestive tract; Z98.51 Tubal ligation status; Z87.891 Personal history of nicotine dependence; Z79.899 Other long term (current) drug therapy
CPT/HCPCS: 36415; 36600; 70450; 71045; 71275; 74177; 80048; 80053; 80202; 80306; 80307; 81001; 82565; 82805; 83605; 83880; 84145; 84484; 85025; 85027; 87040; 87081; 93005; 94664; 94760; 96361; 96365; 96366; 96368; 97139; J0456; J0692; J1308; J1650; J3373; J7050; J7512; J7620; Q9967

== ENCOUNTER 2024-10-27 14:18 | Inpatient (IN) | payer OTHER, MEDICAID ==
[2024-10-27 14:40] LABS: Analyzer IN Cardio ER; Base Excess 11.0 mEq/L (-2.0 to +3.0); Calcium, Ionized (venous) 1.22 mmol/L (1.16-1.32); Chloride (VBG) 99 mmol/L (98-106); Hematocrit-VBG 37 % (36.0-47.0); Hemoglobin (Hb) 12.5 g/dL (11.7-16.1); Potassium (VBG) 3.71 mmol/L (3.70-5.30); Sodium 145 mmol/L (133-146)
[2024-10-27 14:42] LABS: #Basophils 0.04 10x3/uL (0.0-0.2); #Eosinophils 0.24 10x3/uL (0.0-0.7); #Monocytes 1.20 10x3/uL (0.11-0.59); #Neutrophils 8.74 10x3/uL (1.40-6.50); %Basophils 0.3 % (0.0-1.0); %Eosinophils 2.0 % (0.0-10.0); %Lymphocytes 15.8 % (21.0-51.0); %Monocytes 9.8 % (0.0-10.0); %Neutrophils 71.8 % (42.0-75.0); Hematocrit 41.1 % (36.0-47.0); Hemoglobin 11.5 g/dL (12.0-16.0); Mean Corpuscular Hemoglobin 26.8 pg (27.0-31.0); Mean Corpuscular Volume 95.8 fL (78.0-98.0); Platelet Count 231 10x3/uL (130-400); Red Blood Cell (RBC) Count 4.29 mill/uL (4.20-5.40); White Blood Cell (WBC) Count 12.19 10x3/uL (4.8-10.8)
[2024-10-27 14:56] LABS: ALT (SGPT) 15 U/L (Less than 34); AST (SGOT) 17 U/L (11-34); Albumin 3.2 g/dL (3.1-4.5); Alkaline Phosphatase 63 U/L (40-110); Anion Gap 15 mmol/L (10-20); BUN (Urea Nitrogen) 14 mg/dL (9.8-20.1); Bilirubin, Total 0.5 mg/dL (0.3-1.2); Calc. Creatinine Clearance 0 mL/min (70-130); Calcium 9.7 mg/dL (7.8-10.44); Carbon Dioxide 39 mmol/L (23-31); Chloride 98 mmol/L (98-107); Globulin 3.7 g/dL (2.4-3.5); Glucose 140 mg/dL (80-115); Potassium 3.7 mmol/L (3.5-5.1); Sodium 148 mmol/L (136-145)
[2024-10-27 15:03] LABS: Macrocytosis SLIGHT = 6-15 cells HPF (0-5); Platelet Adequacy Comment Platelets Normal; Polychromasia SLIGHT = 2-3 cells HPF (0-2); Stomatocytes MODERATE= 6-15 cells HPF (0-1)
[2024-10-27] MEDS ORDERED: cefTRIAXone (ROCEPHIN) 1 GM VIAL ONE (15:22)
[2024-10-27] MEDS ORDERED: Dexamethasone 10 MG/ML VIAL ONE (15:47)
[2024-10-27] MEDS ORDERED: Ondansetron PF 4 MG/2 ML Vial IVP PRN (16:30)
[2024-10-27] MEDS ORDERED: Senokot S 8.6-50 MG TAB PO PRN (16:30)
[2024-10-27] MEDS ORDERED: Calcium Carbonate 500 MG ChewTAB PO PRN (16:30)
[2024-10-27] MEDS ORDERED: Benzonatate 100 MG CAP PO PRN (16:33)
[2024-10-27 17:20] VITALS: BMI 29.5
[2024-10-27] MEDS ORDERED: Azithromycin 500 MG VIAL ONE (17:36)
[2024-10-27] MEDS: Azithromycin 500 MG in Sodium Chloride 0.9% 250 ML 250 ML IVPB SCH (17:50)
[2024-10-27] MEDS ORDERED: Non-Formulary Item 1 EACH (Budesonide-Formoterol [Symbicort 160-4.5] 160 MG/4.5 MG Aer) INH SCH (21:00)
[2024-10-27] MEDS: Mometasone 200 MCG/Formoterol 5 MCG 120 PUFF INHALER INH SCH (21:14)
[2024-10-27] MEDS: Nystatin/Triamcinolone Ointment 15 GM TUBE TOP SCH (23:04)
[2024-10-28] MEDS: Acetaminophen 325 MG TAB PO PRN (03:00)
[2024-10-28 04:33] LABS: Actual Bicarbonate (HCO3a) 40.5 mEq/L (22-28); Base Excess (BEa) 13.1 mEq/L (-2.0 to +3.0); Calcium, Ionized (arterial) 1.22 mmol/L (1.12-1.30); Hematocrit-ABG 31 % (36.0-47.0); Hemoglobin (Hb) 10.7 g/dL (12.0-16.0); O2 Tension (PaO2), arterial 78.0 mmHg (> 80.0); Potassium - ABG Lab 4.11 mmol/L (3.70-5.30); pH, Arterial 7.391 (7.35-7.45)
[2024-10-28 04:36] LABS: CO2 Tension 68.2 mmHg (35.0-45.0)
[2024-10-28 06:23] LABS: #Basophils Less than 0.03 10x3/uL (0.0-0.2); #Eosinophils Less than 0.03 10x3/uL (0.0-0.7); #Monocytes 0.04 10x3/uL (0.11-0.59); #Neutrophils 5.43 10x3/uL (1.40-6.50); %Basophils 0.0 % (0.0-1.0); %Eosinophils 0.0 % (0.0-10.0); %Lymphocytes 13.6 % (21.0-51.0); %Monocytes 0.6 % (0.0-10.0); %Neutrophils 85.6 % (42.0-75.0); Hematocrit 33.0 % (36.0-47.0); Hemoglobin 9.5 g/dL (12.0-16.0); Mean Corpuscular Hemoglobin 26.8 pg (27.0-31.0); Mean Corpuscular Volume 93.2 fL (78.0-98.0); Platelet Count 205 10x3/uL (130-400); Red Blood Cell (RBC) Count 3.54 mill/uL (4.20-5.40); White Blood Cell (WBC) Count 6.34 10x3/uL (4.8-10.8)
[2024-10-28 06:40] LABS: ALT (SGPT) 12 U/L (Less than 34); AST (SGOT) 13 U/L (11-34); Albumin 2.7 g/dL (3.1-4.5); Alkaline Phosphatase 53 U/L (40-110); Anion Gap 16 mmol/L (10-20); BUN (Urea Nitrogen) 19 mg/dL (9.8-20.1); Bilirubin, Total 0.3 mg/dL (0.3-1.2); Calc. Creatinine Clearance 137 mL/min (70-130); Calcium 9.3 mg/dL (7.8-10.44); Carbon Dioxide 37 mmol/L (23-31); Chloride 98 mmol/L (98-107); Globulin 3.3 g/dL (2.4-3.5); Glucose 164 mg/dL (80-115); Magnesium 1.3 mg/dL (1.6-2.6); Potassium 4.1 mmol/L (3.5-5.1); Sodium 147 mmol/L (136-145)
[2024-10-28] MEDS ORDERED: Ipratropium Bromide 2.5 ml Neb NEB SCH (07:00)
[2024-10-28] MEDS ORDERED: Azithromycin 500 MG in Sodium Chloride 0.9% 250 ML 250 ML IVPB SCH (09:00)
[2024-10-28] MEDS ORDERED: cefTRIAXone\\ROCEPHIN 1 GM in Sodium Chloride 0.9% 100 ML IVPB SCH (09:00)
[2024-10-28] MEDS: Metoprolol Succinate XL 25 MG ER.TAB PO SCH (09:51)
[2024-10-28] MEDS: Pantoprazole 40 MG DR.TAB PO SCH (09:51)
[2024-10-28] MEDS: Enoxaparin 40 MG (0.4 mL) SYRINGE SC SCH (09:51)
[2024-10-28 09:53] VITALS: BMI 29.5
[2024-10-28] MEDS: Nystatin/Triamcinolone Ointment 15 GM TUBE TOP SCH (16:12)
[2024-10-30 05:54] LABS: Anion Gap 13 mmol/L (10-20); BUN (Urea Nitrogen) 17 mg/dL (9.8-20.1); Calc. Creatinine Clearance 121 mL/min (70-130); Calcium 9.0 mg/dL (7.8-10.44); Carbon Dioxide 43 mmol/L (23-31); Chloride 94 mmol/L (98-107); Glucose 122 mg/dL (80-115); Potassium 4.0 mmol/L (3.5-5.1); Sodium 146 mmol/L (136-145)
[2024-10-30 05:55] LABS: #Basophils Less than 0.03 10x3/uL (0.0-0.2); #Eosinophils 0.07 10x3/uL (0.0-0.7); #Monocytes 0.85 10x3/uL (0.11-0.59); #Neutrophils 5.75 10x3/uL (1.40-6.50); %Basophils 0.1 % (0.0-1.0); %Eosinophils 0.8 % (0.0-10.0); %Lymphocytes 20.1 % (21.0-51.0); %Monocytes 10.1 % (0.0-10.0); %Neutrophils 68.4 % (42.0-75.0); Hematocrit 30.8 % (36.0-47.0); Hemoglobin 8.8 g/dL (12.0-16.0); Mean Corpuscular Hemoglobin 26.9 pg (27.0-31.0); Mean Corpuscular Volume 94.2 fL (78.0-98.0); Platelet Count 206 10x3/uL (130-400); Red Blood Cell (RBC) Count 3.27 mill/uL (4.20-5.40); White Blood Cell (WBC) Count 8.41 10x3/uL (4.8-10.8)
[2024-10-30 06:23] LABS: Plasma Cells 1 % (0-0); Platelet Adequacy Comment Platelets Normal; RBC Morphology Within Normal Limits; Smudge Cells 7.8 %
[2024-10-30 12:18] LABS: Base Excess 14.0 mEq/L (-2.0 to +3.0); Calcium, Ionized (venous) 1.08 mmol/L (1.16-1.32); Chloride (VBG) 93 mmol/L (98-106); Hematocrit-VBG 33 % (36.0-47.0); Hemoglobin (Hb) 11.1 g/dL (11.7-16.1); Potassium (VBG) 4.23 mmol/L (3.70-5.30); Sodium 140 mmol/L (133-146)
[2024-10-30 12:19] LABS: Actual Bicarbonate (HCO3v) 40.4 mEq/L (22-28)
[2024-10-31 05:58] LABS: #Basophils Less than 0.03 10x3/uL (0.0-0.2); #Eosinophils 0.06 10x3/uL (0.0-0.7); #Monocytes 0.79 10x3/uL (0.11-0.59); #Neutrophils 5.65 10x3/uL (1.40-6.50); %Basophils 0.1 % (0.0-1.0); %Eosinophils 0.7 % (0.0-10.0); %Lymphocytes 21.6 % (21.0-51.0); %Monocytes 9.4 % (0.0-10.0); %Neutrophils 67.4 % (42.0-75.0); Hematocrit 32.8 % (36.0-47.0); Hemoglobin 9.3 g/dL (12.0-16.0); Mean Corpuscular Hemoglobin 27.0 pg (27.0-31.0); Mean Corpuscular Volume 95.1 fL (78.0-98.0); Platelet Count 206 10x3/uL (130-400); Red Blood Cell (RBC) Count 3.45 mill/uL (4.20-5.40); White Blood Cell (WBC) Count 8.39 10x3/uL (4.8-10.8)
[2024-10-31 06:20] LABS: Anion Gap 14 mmol/L (10-20); BUN (Urea Nitrogen) 22 mg/dL (9.8-20.1); Calc. Creatinine Clearance 111 mL/min (70-130); Calcium 8.8 mg/dL (7.8-10.44); Carbon Dioxide 42 mmol/L (23-31); Chloride 93 mmol/L (98-107); Glucose 96 mg/dL (80-115); Potassium 4.3 mmol/L (3.5-5.1); Sodium 145 mmol/L (136-145)
[2024-10-31 12:56] LABS: Actual Bicarbonate (HCO3v) 41.3 mEq/L (22-28)
[2024-11-01 04:49] LABS: #Basophils 0.03 10x3/uL (0.0-0.2); #Eosinophils 0.06 10x3/uL (0.0-0.7); #Monocytes 0.69 10x3/uL (0.11-0.59); #Neutrophils 5.47 10x3/uL (1.40-6.50); %Basophils 0.4 % (0.0-1.0); %Eosinophils 0.7 % (0.0-10.0); %Lymphocytes 23.6 % (21.0-51.0); %Monocytes 8.3 % (0.0-10.0); %Neutrophils 66.0 % (42.0-75.0); Hematocrit 35.8 % (36.0-47.0); Hemoglobin 10.2 g/dL (12.0-16.0); Mean Corpuscular Hemoglobin 26.8 pg (27.0-31.0); Mean Corpuscular Volume 94.0 fL (78.0-98.0); Platelet Count 212 10x3/uL (130-400); Red Blood Cell (RBC) Count 3.81 mill/uL (4.20-5.40); White Blood Cell (WBC) Count 8.29 10x3/uL (4.8-10.8)
[2024-11-01 05:08] LABS: Anion Gap 13 mmol/L (10-20); BUN (Urea Nitrogen) 18 mg/dL (9.8-20.1); Calc. Creatinine Clearance 143 mL/min (70-130); Calcium 9.1 mg/dL (7.8-10.44); Carbon Dioxide 45 mmol/L (23-31); Chloride 91 mmol/L (98-107); Glucose 92 mg/dL (80-115); Potassium 4.7 mmol/L (3.5-5.1); Sodium 144 mmol/L (136-145)
[2024-11-01 11:01] LABS: Magnesium 1.6 mg/dL (1.6-2.6)
[2024-11-01 14:50] VITALS: BP 132/86; TEMP 98
== END 2024-11-01 14:52 | disposition home or self-care (01) | DRG 189 ==
LOC: SUATTDRO 14:18 → ERS 14:18 → ERHOLD 16:29 → IMCU/EMU 21:11 → MSONC 10-29 17:35
PROVIDERS: ADMIT Internal Medicine; ATTEND Hospitalist
PROC: 3E03329 Introduction of Other Anti-infective into Peripheral Vein, Percutaneous Approach (ICD-10-PCS; principal; 2024-10-27)
PROC: 4A133R1 Monitoring of Arterial Saturation, Peripheral, Percutaneous Approach (ICD-10-PCS; 2024-10-27)
PROC: 5A09357 Assistance with Respiratory Ventilation, Less than 24 Consecutive Hours, Continuous Positive Airway Pressure (ICD-10-PCS; 2024-10-27)
DX: J96.21 Acute and chronic respiratory failure with hypoxia (principal); J18.9 Pneumonia, unspecified organism; F19.20 Other psychoactive substance dependence, uncomplicated; I50.32 Chronic diastolic (congestive) heart failure; E87.0 Hyperosmolality and hypernatremia; J44.1 Chronic obstructive pulmonary disease with (acute) exacerbation; J96.22 Acute and chronic respiratory failure with hypercapnia; E78.5 Hyperlipidemia, unspecified; I11.0 Hypertensive heart disease with heart failure; I27.20 Pulmonary hypertension, unspecified; E66.9 Obesity, unspecified; D64.9 Anemia, unspecified; F41.1 Generalized anxiety disorder; F32.A Depression, unspecified; F17.210 Nicotine dependence, cigarettes, uncomplicated; Z88.5 Allergy status to narcotic agent; Z88.8 Allergy status to other drugs, medicaments and biological substances; Z90.49 Acquired absence of other specified parts of digestive tract; Z98.51 Tubal ligation status; Z85.44 Personal history of malignant neoplasm of other female genital organs; Z79.51 Long term (current) use of inhaled steroids; Z79.899 Other long term (current) drug therapy
CPT/HCPCS: 36415; 71045; 80048; 80053; 82805; 83605; 83735; 83880; 84145; 84484; 85025; 87040; 87070; 87077; 87186; 87205; 93005; 94640; 94664; 96365; 96375; 97139; J0456; J0696; J1100; J1650; J2919; J7050; J7120; J7512; J7620